=== PATIENT | female | born 1980 | race Caucasian/White ===

== ENCOUNTER → 2016-04-28 | Outpatient (CLI) | payer OTHER | LOC: FIMAGING 12:05 | PROVIDERS: ATTEND Obstetrics & Gynecology | DX: O09.522 Supervision of elderly multigravida, second trimester (principal); Z3A.20 20 weeks gestation of pregnancy ==

== ENCOUNTER 2016-09-24 20:50 | Observation (INO) | payer OTHER | END 2016-09-24 22:02 | disposition home or self-care (01) | LOC: UNDOADMOB 20:50 → FLD 20:50 | PROVIDERS: ADMIT Advanced Practice Midwife; ATTEND Advanced Practice Midwife | DX: O99.89 Other specified diseases and conditions complicating pregnancy, childbirth and the puerperium (principal); O48.0 Post-term pregnancy; O09.523 Supervision of elderly multigravida, third trimester; Z3A.41 41 weeks gestation of pregnancy ==

== ENCOUNTER 2016-09-25 17:20 | Inpatient (IN) | payer OTHER ==
[2016-09-25] MEDS ORDERED: OLIVE OIL 118 ML BTL MISC PRN (17:44)
[2016-09-25] MEDS ORDERED: OXYTOCIN/RINGERS LACTATE 1,000 ML IV PRN (17:44)
[2016-09-25] MEDS ORDERED: LR 1,000 ML IV PRN (17:44)
[2016-09-25] MEDS ORDERED: TERBUTALINE SULFATE 1 MG/ML VIAL IV PRN (17:44)
[2016-09-25] MEDS ORDERED: EPSOM SALT 454 GM TP PRN (17:44)
[2016-09-25] MEDS ORDERED: ZOLPIDEM TARTRATE 5 MG TAB PO ONE (20:54)
[2016-09-25] MEDS ORDERED: LR 500 ML IV PRN (20:54)
[2016-09-25] MEDS ORDERED: OXYTOCIN/RINGERS LACTATE 500 ML IV SCH (21:00)
--- NOTE | 2016-09-25 21:28 | GHP ---
[f rep st] HISTORY AND PHYSICAL DATE OF ADMISSION: 09/25/2016 ADMITTING DIAGNOSES: 1. Intrauterine at 41 and 3/7 weeks. 2. Induction of labor secondary to post dates. 3. Advanced maternal age. HISTORY OF PRESENT ILLNESS: The patient is a 36-year-old 1, para 0, at 41 weeks and 3 days, with estimated due date 09/15/2016 by last menstrual period 12/10/2015 and confirmed by a 9-week ultrasound. The patient presents for induction of labor secondary to post dates. On cervical exam she is found to be 1 cm dilated, 75% effaced, -3 station, intact, cephalic. States good movement. Denies any vaginal bleeding or spotting. She did note some increased mucousy discharge this morning as well as irregular contractions throughout the day. The patient presented to [facility] as a transfer of care at 37 weeks from [facility] [place]. is complicated by AMA. She had a negative Innatal. She declined Tdap. She did develop anemia of , and is tolerating iron. GBS culture is negative. PAST OB HISTORY: The patient is primipara. 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 Cycles are every 27-35 days for 5 days. Last menstrual period 12/10/2015. Positive test 02/04/2016. Patient denies a history of abnormal Pap smears and denies any exposure to sexually transmitted diseases. PAST MEDICAL HISTORY: Unremarkable. PAST SURGICAL HISTORY: [place] teeth extraction. MEDICATIONS: Include: Fish oil, vitamin, probiotic. ALLERGIES: No known drug allergies. SOCIAL HISTORY: The patient is . She lives with her , Cain. 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 Denies any alcohol, tobacco, or illicit drug use. FAMILY HISTORY: Unremarkable. LABORATORIES: A-positive. Antibody negative. RPR nonreactive. Rubella immune. Hepatitis B surface antigen negative. HIV negative. Trio screen negative. Pap was normal. Gonorrhea and chlamydia cultures negative 06/22. AFP was negative. Innatal screen was negative. H and H 12.1 and 34.1. One- hour Glucola 93. GBS is negative. REVIEW OF SYSTEMS: Ten-point review of systems negative. Pertinent positives noted in HPI. PHYSICAL EXAM: VITAL SIGNS: On admission, vital signs are stable. The patient is afebrile. GENERAL: Well-nourished, well-developed female. Alert and oriented x3, in no apparent distress. CARDIOVASCULAR: Regular rate and rhythm. LUNGS: Clear to auscultation bilaterally. ABDOMEN: Gravid, soft, nontender, nondistended. EXTREMITIES: Normal to inspection, without calf tenderness or edema. PELVIC: She is 1 cm dilated, 75%, -3 station, intact, cephalic. heart tones category 1 tracing, with a baseline of 145 beats per minute, positive accelerations, no decelerations, moderate variability. She is irregularly celia on toco. ASSESSMENT AND PLAN: The patient is a 36-year-old 1, para 0, at 41 and 3/7 weeks, who presents for induction of labor secondary to post dates. 1. Admit to labor and delivery. 2. Armenta balloon placed without difficulty, inflated with 35 cc of normal saline. Patient tolerated well. No complications. 3. Group B strep is negative. No antibiotics needed. 4. We will start Pitocin in the morning at 6 a.m. 5. NST this evening after Armenta balloon placement, as well as in the morning prior to starting of Pitocin. /[id number]/MODL MTDD
[2016-09-25 22:02] LABS: % IMMATURE GRANULYOCYTES 0.5 % (0.0-1.1); ABSOLUTE IMMATURE GRANULOCYTES 0.06 10^3/uL (0.00-0.10); ADD DIFF? NO; ADD MORPH? NO; ADD SCAN? NO; ATYPICAL LYMPHOCYTE FLAG 0 (0-99); FRAGMENT RBC FLAG 0 (0-99); HEMATOCRIT 36.3 % (38.0-47.0); HEMOGLOBIN 12.9 g/dL (12.6-16.3); LEFT SHIFT FLG 0 (0-99); LIPEMIA HEMOLYSIS FLAG 90 (0-99); MEAN CELL HEMOGLOBIN 32.5 pg (27.9-34.1); MEAN CELL HEMOGLOBIN CONCENTR. 35.5 g/dL (32.4-36.7); MEAN CELL VOLUME 91.4 fL (81.5-99.8); MEAN PLATELET VOLUME 10.5 fL (8.7-11.7); PLATELET CLUMPS FLAG 0 (0-99); PLATELET COUNT 224 10^3/uL (150-400); RED BLOOD CELL COUNT 3.97 10^6/uL (4.18-5.33); RED CELL DISTRIBUTION WIDTH 12.7 % (11.5-15.2)
--- NOTE | 2016-09-26 05:43 | OBPROG ---
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 digital strategist senior manager Objective: 09/25/16 21:40 Patient ABO/Rh A POSITIVE 09/25/16 21:40 - SVE Dilation (cm): 4 (4-5) Effacement (%): 90 Station: -2 Valadez Current Contraction Pattern: Regular FHR (bpm): 140 FHR Pattern Variability: Moderate FHR Category: 1 Membranes: Intact Oxytocin Orders Assessment - Pre-Induction/Augmentation Assessment Gestational Age: 41 week(s) and 3 day(s) ICD10 Worksheet Patient Problems: Problems Problem Status Onset AMA (advanced maternal age) primigravida 35+ Acute Post-dates Acute - ICD10 Problem Qualifiers (1) Post-dates Qualifiers: Post-term type: P (2) AMA (advanced maternal age) primigravida 35+ Qualifiers: Trimester: T
[2016-09-26] MEDS ORDERED: LIDOCAINE 1% 300 MG/30 ML SDV ONE (05:51)
[2016-09-26] MEDS ORDERED: TERBUTALINE SULFATE 1 MG/ML VIAL ONE (05:52)
[2016-09-26] MEDS ORDERED: OLIVE OIL 118 ML BTL ONE (05:52)
[2016-09-26] MEDS ORDERED: AMMONIA AROMATIC 1 EACH AMP IH ONE (05:52)
[2016-09-26] MEDS ORDERED: MISOPROSTOL 200 MCG TAB ONE (05:53)
[2016-09-26] MEDS ORDERED: OXYTOCIN 10 UNIT/ML VIAL ONE (05:53)
--- NOTE | 2016-09-26 08:14 | OBPROG ---
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
--- NOTE | 2016-09-26 09:02 | OBPROG ---
OBG Labor Progress Note Assessment/Plan: Assessment: 36 y/o @ 41 4/7 weeks in active labor IOL secondary to post dates and polyhydramnios Plan: Good cervical progression now. Pt is coping well, I will allow pt to have expectant management for now and re check in a few hours and AROM. 09/26/16 09:00 Subjective: Pt is doing well coping with labor contractions in the tub. Objective: 09/25/16 21:40 Patient ABO/Rh A POSITIVE 09/25/16 21:40 - SVE Dilation (cm): 6 Effacement (%): 90 Station: -1 Valadez Current Contraction Pattern: Regular (Q 3-4) FHR (bpm): 140 FHR Pattern Variability: Moderate FHR Category: 1 Membranes: Intact Oxytocin Orders Assessment - Pre-Induction/Augmentation Assessment Gestational Age: 41 week(s) and 3 day(s) ICD10 Worksheet Patient Problems: Problems Problem Status Onset AMA (advanced maternal age) primigravida 35+ Acute Post-dates Acute
[2016-09-26] MEDS ORDERED: D5W LR 1,000 ML IV SCH (11:30)
--- NOTE | 2016-09-26 12:55 | OBPROG ---
OBG Labor Progress Note Assessment/Plan: Assessment: 36 y/o @ 41 4/7 weeks in active labor IOL secondary to post dates and polyhydramnios Plan: AROM clear fluid now. status is reassuring, good cervical progression. 09/26/16 09:00 09/26/16 12:53 Subjective: Pt is coping well with contractions. Objective: 09/25/16 21:40 Patient ABO/Rh A POSITIVE 09/25/16 21:40 - SVE Dilation (cm): 7 Effacement (%): 100 Station: 0 Valadez Current Contraction Pattern: Regular FHR (bpm): 140 FHR Pattern Variability: Moderate FHR Category: 1 Membranes: AROM, Intact Amniotic Fluid Color: Clear Oxytocin Orders Assessment - Pre-Induction/Augmentation Assessment Gestational Age: 41 week(s) and 3 day(s) ICD10 Worksheet Patient Problems: Problems Problem Status Onset AMA (advanced maternal age) primigravida 35+ Acute Post-dates Acute
[2016-09-26] MEDS ORDERED: PHENYLEPHRINE HCL 100 MCG/ML SYR ONE (15:26)
[2016-09-26] MEDS ORDERED: BUPIVACAINE 0.25% 30 ML SDV ONE (15:26)
[2016-09-26] MEDS ORDERED: fentaNYL 2MCG/ML/BUP 0.1% RTU 100 ML BAG EP ONE (15:27)
[2016-09-26] MEDS ORDERED: PHENYLEPHRINE HCL 100 MCG/ML SYR IVP PRN (16:07)
[2016-09-26] MEDS ORDERED: ONDANSETRON 4 MG/2 ML VIAL IVP PRN (16:07)
[2016-09-26] MEDS ORDERED: NALOXONE HCL 0.4 MG/ML INJ IVP PRN (16:07)
[2016-09-26] MEDS ORDERED: METOCLOPRAMIDE 10 MG/2 ML VIAL IVP PRN (16:07)
[2016-09-26] MEDS ORDERED: fentaNYL 2MCG/ML/BUP 0.1% RTU 100 ML EP SCH (16:30)
[2016-09-26] MEDS ORDERED: LR 500 ML IV SCH (16:30)
[2016-09-26] MEDS ORDERED: LR 500 ML IV PRN (17:47)
--- NOTE | 2016-09-26 17:47 | OBPROG ---
OBG Labor Progress Note Assessment/Plan: Assessment: 36 y/o @ 41 4/7 weeks in active labor IOL secondary to post dates and polyhydramnios Plan: Pt's contractions have spaced out and her cervical progress has stalled. Will begin pitocin for augmentation. 09/26/16 09:00 09/26/16 12:53 09/26/16 17:45 Subjective: Pt is now comfortable with her epidural. She is resting. Objective: 09/25/16 21:40 Patient ABO/Rh A POSITIVE 09/25/16 21:40 - SVE Dilation (cm): 7 Effacement (%): 90 Station: 0 Valadez Current Contraction Pattern: Regular (Q 5-6) FHR (bpm): 140 FHR Pattern Variability: Moderate FHR Category: 1 Membranes: AROM, Intact Amniotic Fluid Color: Clear - Procedures Non-surgical Procedures: Amniotomy Oxytocin Orders Assessment - Pre-Induction/Augmentation Assessment Gestational Age: 41 week(s) and 3 day(s) ICD10 Worksheet Patient Problems: Problems Problem Status Onset AMA (advanced maternal age) primigravida 35+ Acute Post-dates Acute
[2016-09-26] MEDS ORDERED: OXYTOCIN/RINGERS LACTATE 500 ML IV SCH (18:00)
--- NOTE | 2016-09-26 20:52 | OBPROG ---
OBG Labor Progress Note Assessment/Plan: Assessment: 36 y/o @ 41 4/7 weeks in active labor IOL secondary to post dates and polyhydramnios Plan: Pt's contractions have spaced out and her cervical progress has stalled. Will begin pitocin for augmentation. IUPC placed to document adequate contractions. status remains reassuring. 09/26/16 09:00 09/26/16 12:53 09/26/16 17:45 09/26/16 20:52 Subjective: Pt is comfortable with her epidural. Objective: 09/25/16 21:40 Patient ABO/Rh A POSITIVE 09/25/16 21:40 - SVE Dilation (cm): 7 Effacement (%): 90 Station: 0 Valadez Current Contraction Pattern: Regular (Q 2-3) FHR (bpm): 140 FHR Pattern Variability: Moderate FHR Category: 1 Membranes: AROM, Intact Amniotic Fluid Color: Clear - Procedures Non-surgical Procedures: Amniotomy, IUPC Oxytocin Orders Assessment - Pre-Induction/Augmentation Assessment Gestational Age: 41 week(s) and 3 day(s) ICD10 Worksheet Patient Problems: Problems Problem Status Onset AMA (advanced maternal age) primigravida 35+ Acute Post-dates Acute
--- NOTE | 2016-09-26 22:19 | OBPROG ---
OBG Labor Progress Note Assessment/Plan: Assessment: 36 y/o @ 41 4/7 weeks in active labor IOL secondary to post dates and polyhydramnios Plan: Slow cervical change but we are working to achieve an adequate contraction pattern. Will check in a few hours. 09/26/16 09:00 09/26/16 12:53 09/26/16 17:45 09/26/16 20:52 09/26/16 22:17 Subjective: Pt is doing well, comfortable with contractions. Objective: 09/25/16 21:40 Patient ABO/Rh A POSITIVE 09/25/16 21:40 - SVE Dilation (cm): 8 Effacement (%): 90 Station: +1 Valadez Current Contraction Pattern: Regular (Q 2-4) FHR (bpm): 140 FHR Pattern Variability: Moderate FHR Category: 1 Membranes: AROM, Intact Amniotic Fluid Color: Clear - Procedures Non-surgical Procedures: Amniotomy, IUPC Oxytocin Orders Assessment - Pre-Induction/Augmentation Assessment Gestational Age: 41 week(s) and 3 day(s) ICD10 Worksheet Patient Problems: Problems Problem Status Onset AMA (advanced maternal age) primigravida 35+ Acute Post-dates Acute
[2016-09-27] MEDS ORDERED: HYDROCORTISONE 0.5% CREAM TP PRN (02:22)
[2016-09-27] MEDS ORDERED: SIMETHICONE 80 MG TAB CHEW PO PRN (02:22)
[2016-09-27] MEDS ORDERED: HYDROCODONE/APAP 5/325 TAB PO PRN (02:22)
[2016-09-27] MEDS ORDERED: ACETAMINOPHEN 325 MG TAB PO PRN (02:22)
--- NOTE | 2016-09-27 02:26 | OBDEL ---
Info Type: Vaginal GBS+: No Indications for Delivery: Postterm Favorable Cervix (polyhydramnios, and favorable after a hinton ) Vaginal Delivery - Labor and Delivery Onset of Contractions Date: 09/25/16 Onset of Contractions Time: 23:47 Onset of Contractions Type: Augmented Rupture of Membranes Date: 09/26/16 Rupture of Membranes Time: 12:15 Rupture of Membranes Type: Artificial Amniotic Fluid Color: Clear Dilation Complete Date: 09/27/16 Dilation Complete Time: 00:17 Placenta Delivery Date: 09/27/16 Placenta Delivery Time: 01:45 Total Hours of Labor: 25 Non-surgical Procedures: Amniotomy, IUPC Laceration: 1st Degree Repair: 2-0, 3-0, Vicryl Vaginal Sponge Count Correct: Yes Vaginal Needle Count Correct: Yes Vaginal Sweep Performed: Yes EBL: 200 Delivery Events: None - Medications Labor Augmentation/Induction Methods Used: Pitocin Labor Augmentation/Induction Indication: Other (Specify) (inadequate contraction strength and frequency) [place] Data Valadez Delivery Date: 09/27/16 Delivery Time: 01:41 NUNU: 09/15/16 Gestational Age: 41 week(s) and 5 day(s) Sex of : Female Score (1 Min): 8 Score (5 Min): 9 ICD10 Worksheet Patient Problems: Problems Problem Status Onset AMA (advanced maternal age) primigravida 35+ Acute Post-dates Acute (spontaneous vaginal delivery) Acute - ICD10 Problem Qualifiers (1) (spontaneous vaginal delivery)
[2016-09-27] MEDS: IBUPROFEN 600 MG TAB PO PRN ×4 (03:35→22:06)
--- NOTE | 2016-09-27 09:18 | OBPP ---
Progress Note Assessment/Plan: Assessment: s/p PPD # 0 - pt is stable Plan: Continue routine pp care Ice to perineum T/C hinton catheter if cont difficulty with voiding Plan for d/c in 48 hrs 09/2909/27/16 09:18 Subjective: Pt seen and examined. Doing well, some difficulty with voiding since delivery due to increased swelling. She just voided and felt much better. Mild cramping. Moderate lochia. Aldo reg diet and passing flatus. BF well thus far. Objective: 09/25/16 21:40 Patient ABO/Rh A POSITIVE 09/25/16 21:40 Temp Pulse Resp BP Pulse Ox 36.5 C 98 18 92/62 L 98 09/27/16 05:05 09/27/16 05:05 09/27/16 05:05 09/27/16 05:05 09/27/16 05:05 Uterine Position/Fundal Height: Umbilicus -2 Uterine Tone: Firm Physical Exam - Physical Exam General Appearance: WD/WN, alert, no apparent distress Respiratory: lungs clear, normal breath sounds Cardiac/Chest: regular rate, rhythm Abdomen: normal bowel sounds, non-tender, soft, flatus (+) Extremities: non-tender, normal inspection Skin: normal color, warm/dry Neuro/Psych: alert, normal mood/affect, oriented x 3
[2016-09-27] MEDS: DOCUSATE SODIUM 100 MG CAP PO PRN (09:46)
[2016-09-27 20:47] VITALS: RESP 16; O2SAT 95
--- NOTE | 2016-09-28 08:13 | OBPP ---
Progress Note Assessment/Plan: Assessment: s/p PPD # 1 - pt is stable Plan: Continue routine pp care Pt is t/c going home today and will let us us know later this am Instructions reviewed with pt No Rx given Cont PNV Pelvic rest RTC in 4 and 6 weeks for pp visit 09/28/16 08:10 Subjective: Pt seen and examined. Doing well with no complaints. Mild cramping. Moderate lochia. She is talat regular diet, voiding without difficulty and passing flatus. No BM. BF without difficult. Objective: 09/25/16 21:40 Patient ABO/Rh A POSITIVE 09/25/16 21:40 Temp Pulse Resp BP Pulse Ox 36.4 C 80 16 98/64 L 95 09/27/16 20:00 09/27/16 20:00 09/27/16 20:00 09/27/16 20:00 09/27/16 20:00 Uterine Position/Fundal Height: Umbilicus -2 Uterine Tone: Firm Physical Exam - Physical Exam General Appearance: WD/WN, alert, no apparent distress Respiratory: lungs clear, normal breath sounds Cardiac/Chest: regular rate, rhythm Abdomen: normal bowel sounds, non-tender, soft, flatus (+) Extremities: non-tender, normal inspection Skin: normal color, warm/dry Neuro/Psych: alert, normal mood/affect, oriented x 3
--- NOTE | 2016-09-28 08:16 | OBGCSDC ---
General Delivery Information - General Info : 1 Para: 1 Delivery Physician/CNM: Vida Tubbs Admission Date: 09/25/16 Labs: Patient ABO/Rh A POSITIVE 09/25/16 21:40 Hct 36.3 % (38.0-47.0) L 09/25/16 21:40 Vaginal - Diagnosis Labor: Augmented Rupture of Membranes Type: Artificial Amniotic Fluid Color: Clear Laceration: 1st Degree Repair: 2-0, 3-0, Vicryl Delivery Events: None - Operations/Procedures Non-surgical Procedures: Amniotomy, IUPC L&D Analgesia/Anesthesia Type: Epidural - Hospital Course Antepartum: Transfer of care from [facility] [place] at 37 weeks; AMA with negative NIPT Intrapartum: IOL with hinton balloon. Hinton balloon out and pt went into active labor. Augmented with Pitocin at 7 cm. Received epidural. Pushed <1 hr. Uncomplicated . : Uncomplicated. Mild cramping. Mod lochia. Voiding without difficulty. Passing flatus, no BM. BF well. - Delivery Non-surgical Procedures: Amniotomy, IUPC L&D Analgesia/Anesthesia Type: Epidural Data Valadez Delivery Date: 09/27/16 Delivery Time: 01:41 NUNU: 09/15/16 Gestational Age: 41 week(s) and 6 day(s) Sex of Infant: Female [place] Weight (gm): 0 g Score (1 Min): 8 Score (5 Min): 9 Discharge Information - Discharge Information Discharge Medications: Ibuprofen, Vitamins Condition: Good Instruction/Follow Up: Four Weeks, Six Weeks Discharge Physician/CNM: Ingrid Nunez
[2016-09-28] MEDS: DOCUSATE SODIUM 100 MG CAP PO PRN (09:19)
[2016-09-28] MEDS: IBUPROFEN 600 MG TAB PO PRN (09:19)
[2016-09-28 09:23] VITALS: BP 95/55; PULSE 73; TEMP 98.1
== END 2016-09-28 15:00 | disposition home or self-care (01) | DRG 775 ==
LOC: FOBOP 17:20 → FLD 17:21 → FOB 09-27 04:26
PROVIDERS: ADMIT Obstetrics & Gynecology; ATTEND Obstetrics & Gynecology
PROC: 10E0XZZ Delivery of Products of Conception, External Approach (ICD-10-PCS; principal; 2016-09-27)
PROC: 0HQ9XZZ Repair Perineum Skin, External Approach (ICD-10-PCS; principal; 2016-09-27)
PROC: 10907ZC Drainage of Amniotic Fluid, Therapeutic from Products of Conception, Via Natural or Artificial Opening (ICD-10-PCS; principal; 2016-09-27)
PROC: 0U7C7ZZ Dilation of Cervix, Via Natural or Artificial Opening (ICD-10-PCS; principal; 2016-09-27)
DX: O48.0 Post-term pregnancy (principal); O40.3XX0 Polyhydramnios, third trimester, not applicable or unspecified; Z37.0 Single live birth; Z3A.41 41 weeks gestation of pregnancy; O70.0 First degree perineal laceration during delivery
CPT/HCPCS: J2370; J2405; J2590; J3105